=== PATIENT | female | born 1955 | race Caucasian/White ===

== ENCOUNTER 2016-10-10 16:18 | Outpatient (CLI) | payer MEDICARE ==
[2016-10-10 22:24] LABS: Methadone Not Detected (NotDetected); Methamphetamine Not Detected (NotDetected)
== END 2016-10-10 16:19 | disposition home or self-care (01) ==
LOC: HPCALD 16:18
PROVIDERS: ATTEND Family Medicine
DX: Z51.81 Encounter for therapeutic drug level monitoring (principal)
CPT/HCPCS: G0478

== ENCOUNTER 2016-11-07 15:42 | Outpatient (CLI) | payer MEDICARE ==
[2016-11-07 21:41] LABS: Bilirubin Negative (Negative); Blood, Urine Negative (Negative); Glucose, Urine (Dipstick) Negative (Negative); Ketone, Urine Negative (Negative); Nitrite Negative (Negative); Protein, Urine (Dipstick) Negative (Neg-Trace); Urobilinogen 0.2 mg/dL (0.2-1.0)
[2016-11-07 21:49] LABS: Bacteria/HPF None Seen HPF (None Seen); RBC/HPF None Seen HPF (0-3); Squamous Epithelial None Seen HPF (0-3); WBC/HPF None Seen HPF (0-3)
== END 2016-11-07 15:43 ==
LOC: HPCALD 15:42
PROVIDERS: ATTEND Family Medicine
DX: N30.00 Acute cystitis without hematuria (principal)
CPT/HCPCS: 81001; 87086

== ENCOUNTER 2016-12-06 09:06 | Outpatient (CLI) | payer MEDICARE ==
[2016-12-06 11:54] LABS: ALT (SGPT) 9 U/L (0-55); AST (SGOT) 19 U/L (5-34); Alkaline Phosphatase 109 U/L (40-150); Anion Gap 11 mmol/L (10-20); BUN (Urea Nitrogen) 19 mg/dL (9.8-20.1); Bilirubin, Total 0.5 mg/dL (0.2-1.2); Calc. Creatinine Clearance 0 mL/min (70-130); Calcium 8.5 mg/dL (7.8-10.44); Carbon Dioxide 28 mmol/L (23-31); Chloride 108 mmol/L (98-107); Estimated GFR-MDRD 62; Globulin 2.4 g/dL (2.4-3.5); LDL Cholesterol, Calculated 77 mg/dL; Protein, Total 5.9 g/dL (5.8-8.1)
[2016-12-06 12:07] LABS: Hematocrit 38.5 % (36.0-47.0); Mean Platelet Volume 8.9 fL (7.4-10.4); Neutrophil 56 % (42-75); Reactive Lymphocytes 2 % (0-10); Red Blood Cell (RBC) Count 4.14 mill/uL (4.20-5.40); White Blood Cell (WBC) Count 4.4 thou/uL (4.8-10.8)
== END 2016-12-06 09:07 | disposition home or self-care (01) ==
LOC: HPCALD 09:06
PROVIDERS: ATTEND Family Medicine
DX: I10 Essential (primary) hypertension (principal)
CPT/HCPCS: 36415; 80053; 80061; 84443; 85025

== ENCOUNTER 2017-03-09 10:44 | Outpatient (CLI) | payer MEDICARE ==
[2017-03-09 13:56] LABS: Amphetamine Not Detected (NotDetected); Barbiturates Screen Not Detected (NotDetected); Benzodiazepine Screen Not Detected (NotDetected); Cocaine Metabolite Screen Not Detected (NotDetected); Medtox Control Line Valid? VALID (VALID); Methadone Not Detected (NotDetected); Methamphetamine Not Detected (NotDetected); Opiate Screen Detected (NotDetected); Oxycodone Screen Not Detected (NotDetected); Phencyclidine (PCP) Not Detected (NotDetected); THC/Cannabinoid Screen Not Detected (NotDetected); Tricyclic Screen Not Detected (NotDetected)
== END 2017-03-09 10:45 | disposition home or self-care (01) ==
LOC: HPCALD 10:44
PROVIDERS: ATTEND Family Medicine
DX: Z51.81 Encounter for therapeutic drug level monitoring (principal); Z79.891 Long term (current) use of opiate analgesic
CPT/HCPCS: 80306

== ENCOUNTER 2017-04-17 15:16 | Emergency (ER) | payer MEDICARE ==
[2017-04-17 15:48] LABS: #Eosinphils 0.1 thou/uL (0.0-0.7); #Lymphocytes 1.2 thou/uL (1.20-3.40); #Monocytes 0.4 thou/uL (0.11-0.59); #Neutrophils 2.2 thou/uL (1.40-6.50); %Basophils 0.9 % (0.0-1.0); %Eosinophils 3.5 % (0.0-10.0); %Lymphocytes 30.6 % (21.0-51.0); %Monocytes 10.3 % (0.0-10.0); %Neutrophils 54.7 % (42.0-75.0); Mean Corpuscular HGB CONC 32.4 g/dL (32.0-36.0); Mean Corpuscular Hemoglobin 32.1 pg (27.0-31.0); Mean Corpuscular Volume 99.1 fl (81.0-99.0); Mean Platelet Volume 7.9 fL (7.4-10.4); Platelet Count 180 thou/uL (130-400); RBC Distribution Width 12.3 % (11.5-14.5); Red Blood Cell (RBC) Count 4.05 mill/uL (4.20-5.40)
[2017-04-17 16:05] LABS: ALT (SGPT) 18 U/L (8-55); AST (SGOT) 21 U/L (5-34); Albumin 3.4 g/dL (3.4-4.8); Alkaline Phosphatase 118 U/L (40-150); Anion Gap 14 mmol/L (10-20); BUN (Urea Nitrogen) 25 mg/dL (9.8-20.1); Bilirubin, Total 0.3 mg/dL (0.2-1.2); CK (CPK) 59 U/L (29-168); Calc. Creatinine Clearance 0 mL/min (70-130); Calcium 8.5 mg/dL (7.8-10.44); Carbon Dioxide 22 mmol/L (23-31); Chloride 112 mmol/L (98-107); Estimated GFR-MDRD 59; Globulin 2.6 g/dL (2.4-3.5); Glucose 96 mg/dL (80-115); Potassium 4.2 mmol/L (3.5-5.1); Sodium 144 mmol/L (136-145)
[2017-04-17 16:06] LABS: CKMB 1.7 ng/mL (0-6.6); Troponin I Less than 0.010 ng/mL (< 0.028)
--- NOTE | 2017-04-17 17:40 | RAD ---
PORTABLE CHEST: Date: 04-17-17 An AP portable film at 1535 is compared with a 07-08-14 study. FINDINGS: The heart seems slightly larger than it was before, even allowing for this being an AP portable stud y. Slight elevation of the right hemidiaphragm is chronic and no different. The lungs are clear. The re are no infiltrates, effusions, or signs of vascular congestion. The trachea is midline. IMPRESSION: Slight increase in heart size since 2013. Overall size is probably upper normal. POS: HOME
== END 2017-04-17 16:20 | disposition home or self-care (01) ==
LOC: BURERS 15:16
DX: R07.9 Chest pain, unspecified (principal); I10 Essential (primary) hypertension; D64.9 Anemia, unspecified; J45.909 Unspecified asthma, uncomplicated; F32.9 Major depressive disorder, single episode, unspecified; F41.9 Anxiety disorder, unspecified; Z79.899 Other long term (current) drug therapy; Z79.891 Long term (current) use of opiate analgesic
CPT/HCPCS: 71010; 80053; 82553; 84484; 85025; 93005

== ENCOUNTER 2017-06-13 10:25 | Outpatient (CLI) | payer MEDICARE ==
[2017-06-13 11:12] LABS: Bilirubin Negative (Negative); Blood, Urine Moderate (Negative); Clarity Slightly Cloudy (Clear); Glucose, Urine (Dipstick) Negative (Negative); Leukocyte Negative (Negative); Nitrite Negative (Negative); Protein, Urine (Dipstick) Negative (Neg-Trace); Urobilinogen 0.2 mg/dL (0.2-1.0)
[2017-06-13 11:35] LABS: Bacteria/HPF 2+ HPF (None Seen); Crystals/HPF 1+ AMORPH URATES HPF (Negative); RBC/HPF 0-3 HPF (0-3); WBC/HPF 0-3 HPF (0-3)
== END 2017-06-13 10:26 | disposition home or self-care (01) ==
LOC: HPCALD 10:25
PROVIDERS: ATTEND Family Medicine
DX: N30.00 Acute cystitis without hematuria (principal)
CPT/HCPCS: 81001; 87077; 87086; 87186

== ENCOUNTER 2017-07-11 19:31 | Emergency (ER) | payer MEDICARE ==
[2017-07-11] MEDS ORDERED: Fentanyl 100 MCG/2 ML VIAL ONE (20:03)
[2017-07-11] MEDS ORDERED: Ketorolac Tromethamine 30 MG/ML VIAL ONE (20:25)
--- NOTE | 2017-07-11 22:24 | RAD ---
LEFT WRIST TWO VIEWS 07/11/17 No acute fracture was identified. An old fracture of the ulnar styloid and probably of the distal ra dius as well could be seen. The carpals all appear intact. IMPRESSION: Old trauma, but no acute finding. POS: HOME
== END 2017-07-11 20:35 | disposition home or self-care (01) ==
LOC: BURERS 19:31
DX: S63.502A Unspecified sprain of left wrist, initial encounter (principal); J45.909 Unspecified asthma, uncomplicated; F32.9 Major depressive disorder, single episode, unspecified; F41.9 Anxiety disorder, unspecified; Z79.891 Long term (current) use of opiate analgesic; Z79.899 Other long term (current) drug therapy; W19.XXXA Unspecified fall, initial encounter
CPT/HCPCS: 96372; J1885; J3010

== ENCOUNTER 2017-08-30 13:08 | Emergency (ER) | payer MEDICARE ==
[2017-08-30] MEDS ORDERED: Nitroglycerin 0.4 MG TAB (25 Tab Bottle) ONE (13:39)
[2017-08-30 13:42] LABS: #Lymphocytes 1.2 thou/uL (1.20-3.40); #Monocytes 0.4 thou/uL (0.11-0.59); #Neutrophils 3.3 thou/uL (1.40-6.50); %Basophils 0.4 % (0.0-1.0); %Eosinophils 0.6 % (0.0-10.0); %Lymphocytes 23.9 % (21.0-51.0); %Monocytes 8.2 % (0.0-10.0); %Neutrophils 66.9 % (42.0-75.0); Mean Corpuscular HGB CONC 33.9 g/dL (32.0-36.0); Mean Corpuscular Hemoglobin 33.3 pg (27.0-31.0); Mean Corpuscular Volume 98.2 fl (81.0-99.0); Mean Platelet Volume 7.9 fL (7.4-10.4); Platelet Count 170 thou/uL (130-400); RBC Distribution Width 13.4 % (11.5-14.5)
[2017-08-30 13:52] LABS: PTT 28.7 SEC (22.9-36.1); Prothrombin Time 13.1 SEC (12.0-14.7)
[2017-08-30 13:53] LABS: D-Dimer Test 0.91 *mcg/mL (0.27-0.43)
[2017-08-30 14:00] LABS: ALT (SGPT) 32 U/L (8-55); AST (SGOT) 35 U/L (5-34); Albumin 2.3 g/dL (3.4-4.8); Alkaline Phosphatase 144 U/L (40-150); Anion Gap 12 mmol/L (10-20); BUN (Urea Nitrogen) 25 mg/dL (9.8-20.1); Bilirubin, Total 0.8 mg/dL (0.2-1.2); Calc. Creatinine Clearance 0 mL/min (70-130); Calcium 8.1 mg/dL (7.8-10.44); Carbon Dioxide 23 mmol/L (23-31); Chloride 109 mmol/L (98-107); Estimated GFR-MDRD 50; Globulin 2.3 g/dL (2.4-3.5); Glucose 80 mg/dL (80-115); Lipase 11 U/L (8-78); Potassium 3.9 mmol/L (3.5-5.1); Protein, Total 4.6 g/dL (6.0-8.3); Sodium 140 mmol/L (136-145)
[2017-08-30 14:01] LABS: CKMB 1.4 ng/mL (0-6.6); Troponin I 0.013 ng/mL (< 0.028)
[2017-08-30] MEDS ORDERED: Enoxaparin Sodium 100 MG/ML SYRINGE ONE (14:33)
--- NOTE | 2017-08-30 17:46 | CT ---
CT ANGIO OF THE THORAX 08/30/[address] of the thorax was performed for evaluation of dyspnea and an elevated D-dimer. Unfortunatel y, there were many problems with the patient's IV and the injection extravasated. Very little contras t made its way into the vascular system and the pulmonary arteries are certainly not opacified adequa tely to comment on a pulmonary embolism. There is no sign of aortic aneurysm. Calcifications in the aorta are scant. There is no pericardial f luid. No mediastinal mass or significant adenopathy was seen. No lobar infiltrate or effusion was det ected. No worrisome pulmonary nodules were seen. There is a small calcified granuloma in the right mi ddle lobe. Scans into the upper abdomen showed diffuse fatty infiltration of the liver without enlarg ement. The spleen is normal in size. A prior gastric procedure, such as a fundoplication or similar g astric stapling procedure has been done. The lowest slice shows a 5.1 cm cystic area associated with the upper pole of the left kidney. Ultrasound would be needed for confirmation. IMPRESSION: 1. Indeterminate study for pulmonary embolism. 2. No acute thoracic findings. 3. Diffuse fatty infiltration of the liver. POS: HOME
--- NOTE | 2017-08-30 18:35 | RAD ---
PORTABLE CHEST 08/30/17 An AP portable film at 1324 is compared with a 04/17/17 study. There has been no adverse interval change. The heart is normal in size and the lungs are clear. Sligh t elevation of the right hemidiaphragm is no different than before. There is no congestion, edema or pleural effusion. The trachea is midline. IMPRESSION: No acute thoracic finding. POS: HOME
== END 2017-08-30 15:26 | disposition short-term general hospital (02) ==
LOC: BURERS 13:08
DX: R07.2 Precordial pain (principal); I10 Essential (primary) hypertension; J45.909 Unspecified asthma, uncomplicated; K21.9 Gastro-esophageal reflux disease without esophagitis; D50.0 Iron deficiency anemia secondary to blood loss (chronic); F41.9 Anxiety disorder, unspecified; F32.9 Major depressive disorder, single episode, unspecified; Z79.899 Other long term (current) drug therapy
CPT/HCPCS: 36415; 71010; 71275; 80053; 82553; 83605; 83690; 83880; 84443; 84484; 85025; 85379; 85610; 85730; 93005; 94760; 96372; J1650

== ENCOUNTER 2017-11-14 11:52 | Inpatient (IN) | payer MEDICARE ==
[2017-11-14 13:16] VITALS: BMI 37.9
[2017-11-14] MEDS ORDERED: diphenhydrAMINE 25 MG CAP PO PRN (13:16)
[2017-11-14] MEDS ORDERED: cloNIDine 0.1 MG TAB PO PRN (13:16)
[2017-11-14] MEDS ORDERED: traZODone HCl 50 MG TAB PO PRN (13:16)
[2017-11-14] MEDS ORDERED: Acetaminophen 500 MG TAB PO PRN (13:16)
[2017-11-14] MEDS ORDERED: Dextrose 5% in Water 1,000 ML IV PRN (13:21)
[2017-11-14] MEDS ORDERED: Dextrose 50% Abboject 50 ML SYRINGE SLOW IVP PRN (13:21)
[2017-11-14] MEDS ORDERED: Ventolin HFA Inhaler 60 PUFF INHALER INH PRN (14:54)
[2017-11-14] MEDS ORDERED: Albuterol Sulfate 1.25 MG/3 ML NEB NEB PRN (15:00)
[2017-11-14] MEDS: Nystatin Powder 15 GM BOT TOP SCH ×2 (15:29→21:00)
[2017-11-14] MEDS: Saccharomyces boulardii 250 MG CAP PO SCH ×2 (15:29→20:59)
[2017-11-14] MEDS: HYDROcodone/Acetaminophen 10/325 mg Tablet PO PRN (17:55)
[2017-11-14] MEDS: Loperamide HCl 2 MG CAP PO PRN (17:55)
[2017-11-14] MEDS ORDERED: Sodium Chloride 0.9% 10 ML ONE (18:50)
[2017-11-14] MEDS: Mometasone/Formoterol 60 PUFF AER INH SCH (20:54)
[2017-11-14] MEDS ORDERED: Ondansetron ODT 4 MG TAB PO PRN (22:00)
[2017-11-15] MEDS: Levothyroxine Sodium 112 MCG TAB PO SCH (05:29)
[2017-11-15] MEDS: Mometasone/Formoterol 60 PUFF AER INH SCH ×2 (05:30→18:23)
[2017-11-15] MEDS ORDERED: Non-Formulary Item 1 EACH (Multivitamin With Minerals [Multiple Vitamin] 1 TABLET) PO SCH (09:00)
[2017-11-15] MEDS: Calcium Carbonate 500 MG TAB PO SCH (09:43)
[2017-11-15] MEDS: Saccharomyces boulardii 250 MG CAP PO SCH ×3 (09:43→20:53)
[2017-11-15] MEDS: Aspirin 81 mg Enteric Coated Tablet PO SCH (09:43)
[2017-11-15] MEDS: Montelukast Sodium 10 mg Tablet PO SCH (09:43)
[2017-11-15] MEDS: Multivit, Therapeutic 1 TAB PO SCH (09:43)
[2017-11-15] MEDS: Loratadine 10 MG TAB PO SCH (09:44)
[2017-11-15] MEDS: Nystatin Powder 15 GM BOT TOP SCH ×3 (09:47→20:51)
[2017-11-15] MEDS: Folic Acid 1 MG TAB PO SCH (09:59)
[2017-11-15] MEDS: PATIENT'S HOME MEDICATION PO SCH (09:59)
[2017-11-15] MEDS: Estradiol 1 MG TAB PO SCH (10:00)
[2017-11-15] MEDS: HYDROcodone/Acetaminophen 10/325 mg Tablet PO PRN ×2 (10:04→20:52)
[2017-11-15] MEDS: Loperamide HCl 2 MG CAP PO PRN (10:04)
[2017-11-15] MEDS ORDERED: SIMETHICONE 40 MG/0.6 ML PO PRN (14:21)
[2017-11-15] MEDS ORDERED: Simethicone Chewable 80 MG TAB PO PRN (14:22)
[2017-11-15] MEDS: LACTASE 9000 UNIT PO SCH (17:16)
[2017-11-16] MEDS: Mometasone/Formoterol 60 PUFF AER INH SCH ×2 (05:43→18:21)
[2017-11-16] MEDS: Levothyroxine Sodium 112 MCG TAB PO SCH (05:43)
[2017-11-16] MEDS: Estradiol 1 MG TAB PO SCH (08:43)
[2017-11-16] MEDS: Multivit, Therapeutic 1 TAB PO SCH (08:44)
[2017-11-16] MEDS: Folic Acid 1 MG TAB PO SCH (08:44)
[2017-11-16] MEDS: Saccharomyces boulardii 250 MG CAP PO SCH ×3 (08:45→20:46)
[2017-11-16] MEDS: Aspirin 81 mg Enteric Coated Tablet PO SCH (08:45)
[2017-11-16] MEDS: Montelukast Sodium 10 mg Tablet PO SCH (08:45)
[2017-11-16] MEDS: Loratadine 10 MG TAB PO SCH (08:45)
[2017-11-16] MEDS: Calcium Carbonate 500 MG TAB PO SCH (08:45)
[2017-11-16] MEDS: PATIENT'S HOME MEDICATION PO SCH (08:46)
[2017-11-16] MEDS: HYDROcodone/Acetaminophen 10/325 mg Tablet PO PRN ×2 (09:41→15:30)
[2017-11-16] MEDS: Nystatin Powder 15 GM BOT TOP SCH ×3 (09:43→20:48)
[2017-11-16] MEDS: LACTASE 9000 UNIT PO SCH ×3 (12:57→17:16)
[2017-11-16] MEDS: Cyclobenzaprine 10 MG TAB PO PRN (15:30)
[2017-11-17] MEDS: Mometasone/Formoterol 60 PUFF AER INH SCH ×2 (06:00→18:09)
[2017-11-17] MEDS: Levothyroxine Sodium 112 MCG TAB PO SCH (06:01)
[2017-11-17] MEDS: Loperamide HCl 2 MG CAP PO PRN (08:49)
[2017-11-17] MEDS: Calcium Carbonate 500 MG TAB PO SCH (09:44)
[2017-11-17] MEDS: LACTASE 9000 UNIT PO SCH ×3 (09:45→18:08)
[2017-11-17] MEDS: Montelukast Sodium 10 mg Tablet PO SCH (09:46)
[2017-11-17] MEDS: Multivit, Therapeutic 1 TAB PO SCH (09:46)
[2017-11-17] MEDS: Saccharomyces boulardii 250 MG CAP PO SCH ×3 (09:47→20:48)
[2017-11-17] MEDS: Folic Acid 1 MG TAB PO SCH (09:48)
[2017-11-17] MEDS: Loratadine 10 MG TAB PO SCH (09:48)
[2017-11-17] MEDS: Aspirin 81 mg Enteric Coated Tablet PO SCH (09:48)
[2017-11-17] MEDS: Estradiol 1 MG TAB PO SCH (09:49)
[2017-11-17] MEDS: HYDROcodone/Acetaminophen 10/325 mg Tablet PO PRN ×2 (09:51→19:15)
[2017-11-17] MEDS: PATIENT'S HOME MEDICATION PO SCH (09:51)
[2017-11-17] MEDS: Nystatin Powder 15 GM BOT TOP SCH ×3 (09:52→20:48)
[2017-11-17] MEDS: Cyclobenzaprine 10 MG TAB PO PRN (14:37)
[2017-11-18] MEDS: Levothyroxine Sodium 112 MCG TAB PO SCH (06:27)
[2017-11-18] MEDS: Mometasone/Formoterol 60 PUFF AER INH SCH ×2 (06:29→18:48)
[2017-11-18] MEDS: LACTASE 9000 UNIT PO SCH ×3 (08:34→17:16)
[2017-11-18] MEDS: Estradiol 1 MG TAB PO SCH (08:34)
[2017-11-18] MEDS: PATIENT'S HOME MEDICATION PO SCH (08:35)
[2017-11-18] MEDS: Montelukast Sodium 10 mg Tablet PO SCH (08:36)
[2017-11-18] MEDS: Aspirin 81 mg Enteric Coated Tablet PO SCH (08:36)
[2017-11-18] MEDS: Saccharomyces boulardii 250 MG CAP PO SCH ×3 (08:36→20:22)
[2017-11-18] MEDS: Loratadine 10 MG TAB PO SCH (08:36)
[2017-11-18] MEDS: Folic Acid 1 MG TAB PO SCH (08:36)
[2017-11-18] MEDS: Multivit, Therapeutic 1 TAB PO SCH (08:37)
[2017-11-18] MEDS: Calcium Carbonate 500 MG TAB PO SCH (08:37)
[2017-11-18] MEDS: Nystatin Powder 15 GM BOT TOP SCH ×3 (13:11→21:00)
[2017-11-18] MEDS: HYDROcodone/Acetaminophen 10/325 mg Tablet PO PRN ×2 (13:32→20:23)
[2017-11-18] MEDS: Cyclobenzaprine 10 MG TAB PO PRN ×2 (13:32→20:23)
[2017-11-18] MEDS: Loperamide HCl 2 MG CAP PO PRN (13:43)
[2017-11-19] MEDS: Levothyroxine Sodium 112 MCG TAB PO SCH (06:19)
[2017-11-19] MEDS: HYDROcodone/Acetaminophen 10/325 mg Tablet PO PRN ×2 (06:19→15:47)
[2017-11-19] MEDS: Mometasone/Formoterol 60 PUFF AER INH SCH ×2 (06:20→18:43)
[2017-11-19] MEDS: LACTASE 9000 UNIT PO SCH ×3 (09:56→17:22)
[2017-11-19] MEDS: Calcium Carbonate 500 MG TAB PO SCH (09:56)
[2017-11-19] MEDS: Saccharomyces boulardii 250 MG CAP PO SCH ×3 (09:56→20:36)
[2017-11-19] MEDS: Folic Acid 1 MG TAB PO SCH (09:57)
[2017-11-19] MEDS: Multivit, Therapeutic 1 TAB PO SCH (09:57)
[2017-11-19] MEDS: Loratadine 10 MG TAB PO SCH (09:57)
[2017-11-19] MEDS: Montelukast Sodium 10 mg Tablet PO SCH (09:57)
[2017-11-19] MEDS: Aspirin 81 mg Enteric Coated Tablet PO SCH (09:58)
[2017-11-19] MEDS: Estradiol 1 MG TAB PO SCH (09:58)
[2017-11-19] MEDS: PATIENT'S HOME MEDICATION PO SCH (09:59)
[2017-11-19] MEDS: Nystatin Powder 15 GM BOT TOP SCH ×3 (10:01→20:34)
[2017-11-19] MEDS: Loperamide HCl 2 MG CAP PO PRN (13:45)
[2017-11-19] MEDS: Cyclobenzaprine 10 MG TAB PO PRN (15:47)
[2017-11-20] MEDS: Levothyroxine Sodium 112 MCG TAB PO SCH (06:35)
[2017-11-20] MEDS: Mometasone/Formoterol 60 PUFF AER INH SCH ×2 (06:36→18:30)
[2017-11-20] MEDS: Calcium Carbonate 500 MG TAB PO SCH (08:54)
[2017-11-20] MEDS: Aspirin 81 mg Enteric Coated Tablet PO SCH (08:55)
[2017-11-20] MEDS: Saccharomyces boulardii 250 MG CAP PO SCH ×3 (08:55→20:37)
[2017-11-20] MEDS: Folic Acid 1 MG TAB PO SCH (08:55)
[2017-11-20] MEDS: Montelukast Sodium 10 mg Tablet PO SCH (08:55)
[2017-11-20] MEDS: Loratadine 10 MG TAB PO SCH (08:55)
[2017-11-20] MEDS: Multivit, Therapeutic 1 TAB PO SCH (08:55)
[2017-11-20] MEDS: LACTASE 9000 UNIT PO SCH ×3 (08:56→16:38)
[2017-11-20] MEDS: Estradiol 1 MG TAB PO SCH (08:59)
[2017-11-20] MEDS: PATIENT'S HOME MEDICATION PO SCH (08:59)
[2017-11-20] MEDS: Nystatin Powder 15 GM BOT TOP SCH ×3 (09:00→20:52)
[2017-11-20] MEDS: HYDROcodone/Acetaminophen 10/325 mg Tablet PO PRN ×2 (09:08→18:30)
[2017-11-20] MEDS: Cyclobenzaprine 10 MG TAB PO PRN (20:52)
[2017-11-21] MEDS: Levothyroxine Sodium 112 MCG TAB PO SCH (06:14)
[2017-11-21] MEDS: Mometasone/Formoterol 60 PUFF AER INH SCH (06:14)
[2017-11-21 06:22] VITALS: BP 107/60; TEMP 97.6
[2017-11-21] MEDS: HYDROcodone/Acetaminophen 10/325 mg Tablet PO PRN (08:35)
[2017-11-21] MEDS: Calcium Carbonate 500 MG TAB PO SCH (08:38)
[2017-11-21] MEDS: Folic Acid 1 MG TAB PO SCH (08:39)
[2017-11-21] MEDS: Montelukast Sodium 10 mg Tablet PO SCH (08:39)
[2017-11-21] MEDS: Saccharomyces boulardii 250 MG CAP PO SCH (08:39)
[2017-11-21] MEDS: Loratadine 10 MG TAB PO SCH (08:39)
[2017-11-21] MEDS: Multivit, Therapeutic 1 TAB PO SCH (08:39)
[2017-11-21] MEDS: Aspirin 81 mg Enteric Coated Tablet PO SCH (08:39)
[2017-11-21] MEDS: LACTASE 9000 UNIT PO SCH (08:40)
[2017-11-21] MEDS: Estradiol 1 MG TAB PO SCH (08:41)
[2017-11-21] MEDS: Nystatin Powder 15 GM BOT TOP SCH (08:58)
[2017-11-21 09:22] LABS: #Basophils 0.1 thou/uL (0.0-0.2); #Lymphocytes 1.9 thou/uL (1.20-3.40); #Monocytes 0.5 thou/uL (0.11-0.59); #Neutrophils 4.1 thou/uL (1.40-6.50); %Basophils 1.5 % (0.0-1.0); %Eosinophils 0.6 % (0.0-10.0); %Lymphocytes 29.1 % (21.0-51.0); %Monocytes 7.3 % (0.0-10.0); %Neutrophils 61.6 % (42.0-75.0); Mean Corpuscular HGB CONC 33.5 g/dL (32.0-36.0); Mean Corpuscular Hemoglobin 35.5 pg (27.0-31.0); Mean Platelet Volume 8.1 fL (7.4-10.4); Platelet Count 303 thou/uL (130-400); RBC Distribution Width 14.4 % (11.5-14.5); Red Blood Cell (RBC) Count 3.67 mill/uL (4.20-5.40); White Blood Cell (WBC) Count 6.6 thou/uL (4.8-10.8)
[2017-11-21 09:27] LABS: ALT (SGPT) 29 U/L (8-55); Albumin 1.6 g/dL (3.4-4.8); Alkaline Phosphatase 202 U/L (40-150); Anion Gap 15 mmol/L (10-20); BUN (Urea Nitrogen) 20 mg/dL (9.8-20.1); Bilirubin, Total 0.9 mg/dL (0.2-1.2); Calc. Creatinine Clearance 66 mL/min (70-130); Calcium 7.4 mg/dL (7.8-10.44); Carbon Dioxide 18 mmol/L (23-31); Chloride 111 mmol/L (98-107); Estimated GFR-MDRD 45; Globulin 2.6 g/dL (2.4-3.5); Glucose 76 mg/dL (80-115); Potassium 4.6 mmol/L (3.5-5.1); Protein, Total 4.2 g/dL (6.0-8.3); Sodium 139 mmol/L (136-145)
[2017-11-21 09:36] LABS: AST (SGOT) 43 U/L (5-34)
[2017-11-21 09:44] LABS: MDiff Complete? YES; Macrocytosis SLIGHT = 6-15 cells (100X) (0-5/hpf); PLT Morphology Comment Appears Adequate
== END 2017-11-21 12:30 | disposition short-term general hospital (02) | DRG 948 ==
LOC: BURMED 12:30
PROVIDERS: ADMIT Family Medicine; ATTEND Family Medicine
DX: R53.1 Weakness (principal); E46 Unspecified protein-calorie malnutrition; K91.2 Postsurgical malabsorption, not elsewhere classified; N39.0 Urinary tract infection, site not specified; L03.114 Cellulitis of left upper limb; R62.7 Adult failure to thrive; Z68.37 Body mass index [BMI] 37.0-37.9, adult; E88.09 Other disorders of plasma-protein metabolism, not elsewhere classified; I95.1 Orthostatic hypotension; R60.1 Generalized edema; Z98.84 Bariatric surgery status
CPT/HCPCS: 36416; 80053; 85025; 94664; A4216; G8978-GP-CK; G8979-GP-CI; G8987-GO-CK; G8988-GO-CI; Q0162